=== PATIENT | male | born 2000 | race Caucasian/White ===

== ENCOUNTER 2023-08-12 15:01 | Emergency (ER) | payer MEDICAID, OTHER ==
[2023-08-12 16:06] LABS: BASOPHILS % (AUTO) 0.8 %; EOSINOPHILS % (AUTO) 0.3 %; HCT - HEMATOCRIT 46.9 % (42.0-52.0); HGB - HEMOGLOBIN 15.6 g/dL (14.0-18.0); LYMPHOCYTES # (AUTO) 1.4 10^3/uL (1.5-3.5); LYMPHOCYTES % (AUTO) 36.3 %; MEAN CORPUSCULAR HEMOGLOBIN 29.1 pg (27.0-31.0); MEAN CORPUSCULAR HGB CONC 33.3 g/dL (32.0-36.0); MEAN CORPUSCULAR VOLUME 87.5 fL (80.0-94.0); MEAN PLATELET VOLUME 9.2 fL (7.4-11.4); MONOCYTES # (AUTO) 0.2 10^3/uL (0.0-1.0); MONOCYTES % (AUTO) 4.7 %; NEUTROPHILS # (AUTO) 2.2 10^3/uL (1.5-6.6); NEUTROPHILS % (AUTO) 57.6 %; PLT - PLATELET COUNT 172 10^3/uL (130-450); RED BLOOD COUNT 5.36 10^6/uL (4.70-6.10); RED CELL DISTRIBUTION WIDTH 13.2 % (12.0-15.0); WHITE BLOOD COUNT 3.9 x10^3/uL (4.8-10.8)
[2023-08-12 16:25] LABS: ACETAMINOPHEN 0.2 ug/mL; CK- CREATINE KINASE 92 IU/L (30-223); LIPASE 25 U/L (11-82)
[2023-08-12 16:31] LABS: ALBUMIN 4.6 g/dL (3.2-5.5); ALBUMIN/GLOBULIN RATIO 1.4 (1.0-2.2); ALKALINE PHOSPHATASE 120 IU/L (42-121); ALT ALANINE AMINOTRANSFERASE 166 IU/L (10-60); AST ASPARTATE AMINOTRANSFERASE 322 IU/L (10-42); BILIRUBIN,TOTAL 0.6 mg/dL (0.2-1.0); BUN - BLOOD UREA NITROGEN 12 mg/dL (6-20); CALCIUM 8.7 mg/dL (8.5-10.3); CARBON DIOXIDE - CO2 24 mmol/L (21-32); CHLORIDE 98 mmol/L (101-111); CREATININE 0.7 mg/dL (0.6-1.3); GFR - MDRD 142 (>89); GLUCOSE 91 mg/dL (74-104); POTASSIUM 3.9 mmol/L (3.5-4.5); SALICYLATE < 1.5 mg/dL; SODIUM 140 mmol/L (135-145); TOTAL PROTEIN 7.8 g/dL (6.4-8.9)
[2023-08-12 16:34] LABS: THYROID STIMULATING HORMONE 0.32 uIU/mL (0.34-5.60)
[2023-08-12 16:37] LABS: BILIRUBIN,URINE NEGATIVE (NEGATIVE); GLUCOSE, URINE (UA) NEGATIVE (NEGATIVE); KETONES,URINE (UA) >=80 mg/dL (NEGATIVE); LEUKOCYTE ESTERASE, URINE NEGATIVE (NEGATIVE); NITRITE,URINE NEGATIVE (NEGATIVE); OCCULT BLOOD,URINE NEGATIVE (NEGATIVE); PROTEIN,URINE TRACE mg/dL (NEGATIVE); UROBILINOGEN,URINE 1 (NORMAL) E.U./dL (NORMAL)
[2023-08-12 16:40] LABS: CLARITY,URINE CLEAR (CLEAR)
[2023-08-12 16:48] LABS: AMPHETAMINE SCREEN,URINE NEGATIVE (NEGATIVE); BARBITURATE SCREEN,UR NEGATIVE (NEGATIVE); BENZODIAZEPINES SCREEN, URINE NEGATIVE (NEGATIVE); BUPRENORPHINE SCREEN, URINE POSITIVE (NEGATIVE); COCAINE SCREEN URINE NEGATIVE (NEGATIVE); METHADONE SCREEN, URINE NEGATIVE (NEGATIVE); METHAMPHETAMINES SCREEN, URINE NEGATIVE (NEGATIVE); OPIATE SCREEN, URINE NEGATIVE (NEGATIVE); OXYCODONE SCREEN, URINE NEGATIVE (NEGATIVE); THC CANNABINOID SCREEN, URINE NEGATIVE (NEGATIVE); TRICYCLIC ANTIDEPRESSANT,URINE NEGATIVE (NEGATIVE)
--- NOTE | 2023-08-12 18:43 | ED Physician Documentation ---
PD HPI MHE - Stated complaint Stated Complaint: ETOH - Chief complaint Chief Complaint: MHE - History obtained from History obtained from: Patient, EMS - History of Present Illness Primary symptom: No: Suicidal ideation, Suicide attempt, Self harm - cut Pain level max: 0 Pain level now: 0 - Additional information Additional information: Patient is a 23-year-old male brought in by police for a DCR pickup order for violating an LRO. No other information is available. Patient states that he has been drinking alcohol today. He denies being suicidal or homicidal. He states he has not been taking his medications. I spoke with YESSY Gonzalez, she states that the patient had been released from a psychiatric facility as long as he abstain from alcohol and was taking his medications. He has been drinking alcohol and not taking his medications to the LRO was revoked. She is requesting labs for placement. Patient states that he was last admitted to [facility] for psychiatric care in June 2023. He states the day he was released he went home and started drinking about 1/5 of vodka daily. He states that it is the usual amount that he drinks. He denies any suicidal, homicidal ideation. No hallucinations. Nothing makes it better or worse. Otherwise asymptomatic here. Review of Systems Constitutional: denies: Fever, Chills Nose: denies: Rhinorrhea / runny nose, Congestion GI: denies: Vomiting, Diarrhea Skin: denies: Rash Musculoskeletal: denies: Neck pain, Back pain Neurologic: denies: Focal weakness, Numbness, Headache PD PAST MEDICAL HISTORY - Past Medical History Past Medical History: Yes Psych: Anxiety, Bipolar disorder - Past Surgical History Past Surgical History: No - Present Medications Home Medications: Ambulatory Orders Medication Instructions Recorded Confirmed Divalproex Sodium [Depakote ER] 500 mg PO BID 08/12/23 08/12/23 Propranolol ER [Inderal LA] 60 mg PO DAILY 08/12/23 08/12/23 hydrOXYzine pamoate [Hydroxyzine 50 mg PO Q6HR PRN 08/12/23 08/12/23 Pamoate] risperiDONE [Risperdal] 2 mg PO HS 08/12/23 08/12/23 traZODone [Desyrel] 50 mg PO HS PRN 08/12/23 08/12/23 - Allergies Allergies/Adverse Reactions: Allergies Allergy/AdvReac Type Severity Reaction Status Date / Time No Known Drug Allergies Allergy Verified 08/12/23 15:35 - Social History Does the pt smoke?: Yes Smoking Status: Current every day smoker PD ED PE NORMAL - Vitals Vital signs reviewed: Yes - General General: Alert and oriented X 3, No acute distress, Well developed/nourished - HEENT HEENT: Atraumatic, PERRL, EOMI, Moist mucous membranes - Neck Neck: Supple, no meningeal sign - Cardiac Cardiac: RRR, Strong equal pulses - Respiratory Respiratory: No respiratory distress, Clear bilaterally - Abdomen Abdomen: Soft, Non tender, Non distended - Back Back: No spinal TTP - Derm Derm: Warm and dry - Extremities Extremities: No edema, No calf tenderness / cord - Neuro Neuro: Alert and oriented X 3, cutter out 2-12 intact, No motor deficit, No sensory deficit, Normal speech - Psych Psych: Normal mood, Normal affect Results - Vitals Vitals: Vital Signs - 24 hr 08/12/23 08/12/23 08/12/23 15:04 15:28 15:52 Temperature 36.7 C Heart Rate 101 H 110 H Respiratory 18 18 20 Rate Blood Pressure 141/97 H 135/96 H O2 Saturation 95 97 08/12/23 08/12/23 08/12/23 16:31 17:37 19:17 Temperature Heart Rate 111 H Respiratory 18 16 17 Rate Blood Pressure 139/86 H O2 Saturation 96 08/12/23 08/12/23 08/12/23 20:12 20:40 22:28 Temperature Heart Rate 122 H Respiratory 18 19 17 Rate Blood Pressure 133/95 H O2 Saturation 96 08/12/23 23:44 Temperature Heart Rate Respiratory 20 Rate Blood Pressure O2 Saturation 97 Oxygen O2 Source Room air - EKG (time done) 1747 EKG releavant findings:: EKG personally interpreted by author of this note. Relevant findings are: Rate: Rate (enter#) (108) Rhythm: Sinus tachycardia [place]: Normal Intervals: Normal [place] QRS: Normal Ischemia: Normal ST segments - Labs Labs: Laboratory Tests 08/12/23 08/12/23 08/12/23 16:00 16:00 16:04 WBC 3.9 L RBC 5.36 Hgb 15.6 Hct 46.9 MCV 87.5 MCH 29.1 MCHC 33.3 RDW 13.2 Plt Count 172 MPV 9.2 Neut # (Auto) 2.2 Lymph # (Auto) 1.4 L [place] # (Auto) 0.2 Eos # (Auto) 0.0 Baso # (Auto) 0.0 Absolute Nucleated RBC 0.00 Nucleated RBC % 0.0 Sodium 140 Potassium 3.9 Chloride 98 L Carbon Dioxide 24 Anion Gap 18.0 H BUN 12 Creatinine 0.7 Estimated GFR (MDRD) 142 Glucose 91 Calcium 8.7 Magnesium 2.0 Total Bilirubin 0.6 AST 322 H ALT 166 H Alkaline Phosphatase 120 Total Creatine Kinase 92 Total Protein 7.8 Albumin 4.6 Globulin 3.2 Albumin/Globulin Ratio 1.4 Lipase 25 TSH 0.32 L Urine Color Urine Clarity Urine pH Ur Specific [place] Urine Protein Urine Glucose (UA) Urine Ketones Urine Occult Blood Urine Nitrite Urine Bilirubin Urine Urobilinogen Ur Leukocyte Esterase Ur Microscopic Review Urine Culture Comments Last Dose Date Not Reportable Last Dose Time Not Reportable Salicylates < 1.5 Urine Opiates Screen Ur Buprenorphine Scrn Ur Oxycodone Screen Urine Methadone Screen Acetaminophen 0.2 Ur Barbiturates Screen Valproic Acid 4.0 Ur Tricyclics Screen Ur Phencyclidine Scrn Ur Amphetamine Screen U Methamphetamines Scrn U Benzodiazepines Scrn Urine Cocaine Screen U Cannabinoids Screen Ur Drug Screen Comment Ethyl Alcohol 441.0 SARS-CoV-2 (PCR) 08/12/23 08/12/23 16:20 16:23 WBC RBC Hgb Hct MCV MCH MCHC RDW Plt Count MPV Neut # (Auto) Lymph # (Auto) [place] # (Auto) Eos # (Auto) Baso # (Auto) Absolute Nucleated RBC Nucleated RBC % Sodium Potassium Chloride Carbon Dioxide Anion Gap BUN Creatinine Estimated GFR (MDRD) Glucose Calcium Magnesium Total Bilirubin AST ALT Alkaline Phosphatase Total Creatine Kinase Total Protein Albumin Globulin Albumin/Globulin Ratio Lipase TSH Urine Color DARK YELLOW Urine Clarity CLEAR Urine pH 6.0 Ur Specific [place] 1.015 Urine Protein TRACE Urine Glucose (UA) NEGATIVE Urine Ketones >=80 H Urine Occult Blood NEGATIVE Urine Nitrite NEGATIVE Urine Bilirubin NEGATIVE Urine Urobilinogen 1 (NORMAL) Ur Leukocyte Esterase NEGATIVE Ur Microscopic Review NOT INDICATED Urine Culture Comments NOT INDICATED Last Dose Date Last Dose Time Salicylates Urine Opiates Screen NEGATIVE Ur Buprenorphine Scrn POSITIVE H Ur Oxycodone Screen NEGATIVE Urine Methadone Screen NEGATIVE Acetaminophen Ur Barbiturates Screen NEGATIVE Valproic Acid Ur Tricyclics Screen NEGATIVE Ur Phencyclidine Scrn NEGATIVE Ur Amphetamine Screen NEGATIVE U Methamphetamines Scrn NEGATIVE U Benzodiazepines Scrn NEGATIVE Urine Cocaine Screen NEGATIVE U Cannabinoids Screen NEGATIVE Ur Drug Screen Comment CUTOFF CONC BELOW: Ethyl Alcohol SARS-CoV-2 (PCR) NOT DETECTED PD Medical Decision Making - ED course Complexity details: reviewed results, re-evaluated patient, considered differential, d/w patient ED course: The patient is intoxicated in the emergency department but is not suicidal or homicidal. He does have elevation of his liver function test, these are mild elevations and should be trended. Unclear what his last LFTs were as we do not have any lab values from prior on him. He is not in acute liver failure. Likely they are elevated from his alcohol use. The patient does not have any withdrawal symptoms here. Patient did become mildly tachycardic and was given Ativan. DCR came and evaluated the patient. They will look for a bed for the patient. Patient signed out to the oncoming emergency department physician. This document was made in part using voice recognition software. While efforts are made to proofread this document, sound alike and grammatical errors may occur. Departure - Departure Clinical Impression: Alcohol abuse, Noncompliance with medication regimen, Elevated LFTs Bipolar disorder Qualifiers: Active/Remission status: remission status unspecified Qualified Code(s): F31.9 - Bipolar disorder, unspecified Condition: Stable Forms: PCP List
[2023-08-12] MEDS ORDERED: BUPRENORPHINE/NALOXONE 8-2 MG TAB SL STA (21:42)
[2023-08-12] MEDS ORDERED: LORazepam 1 MG TABLET PO STA ×2 (22:30→23:13)
[2023-08-12] MEDS ORDERED: NICOTINE 14 MG PATCH TOP STA (23:39)
[2023-08-12] MEDS ORDERED: PROPRANOLOL 10 MG TABLET PO STA (23:51)
[2023-08-13] MEDS ORDERED: BUPRENORPHINE/NALOXONE 8-2 MG TAB SL STA ×2 (00:45→07:35)
[2023-08-13] MEDS ORDERED: LORazepam 1 MG TABLET PO STA ×2 (01:26→06:13)
--- NOTE | 2023-08-13 01:59 | ED Physician Documentation ---
ED Addendum - Addendum Addendum: Patient received in signout at shift change awaiting placement by the DCR for violating his LR0.Was found to have quite an elevated alcohol level upon arrival. During my shift he is requesting meditations to help with his restlessness and agitation. Could be from alcohol withdrawal. Have ordered Ativan for him. Additionally he is asking for additional dose of Suboxone. He was already given 8 mg but states that he usually takes 16 mg. On review of recently filled medications there was a prescription written at the end of June for 7 days of Suboxone 8 mg and 14 tabs were dispensed so I do think he is taking 16 mg daily. I have ordered an additional 8 mg.Patient also r equesting Nicotine patch. 08/13/23 01:57 Spoke with intake nurse at a facility in [facility]. She had some further questions regarding his medications and whether he is also abusing opiates. She will reach back out to DCR. 08/13/23 03:59 Patient has been accepted to [facility]. Patient to be signed out to oncoming provider at shift change.
[2023-08-13] MEDS ORDERED: traZODone 50 MG TABLET PO STA (03:07)
[2023-08-13 06:42] VITALS: BP 150/90; O2SAT 97
[2023-08-13] MEDS ORDERED: DIVALPROEX ER 250 MG TABLET PO STA (07:35)
[2023-08-13] MEDS ORDERED: PROPRANOLOL 10 MG TABLET PO STA (07:36)
[2023-08-13] MEDS: hydrOXYzine PAMOATE 25 MG CAPSULE PO STA ×3 (07:45→07:49)
== END 2023-08-13 10:19 ==
LOC: ED 15:01
DX: F10.10 Alcohol abuse, uncomplicated (principal); Y90.8 Blood alcohol level of 240 mg/100 ml or more; R79.89 Other specified abnormal findings of blood chemistry; R00.0 Tachycardia, unspecified; R45.1 Restlessness and agitation; F31.9 Bipolar disorder, unspecified; F17.200 Nicotine dependence, unspecified, uncomplicated; Z91.148 Patient's other noncompliance with medication regimen for other reason; Z79.899 Other long term (current) drug therapy
CPT/HCPCS: 36415; 80053; 80164; 80306; 80307; 80320; 80329; 81003; 82550; 83690; 83735; 84443; 85025; 87635; 93005; 99284; 99285; A9270; J8499; 81001; 87086

== ENCOUNTER 2023-09-24 13:58 | Outpatient (CLI) | payer MEDICAID | END 2023-09-24 23:59 | disposition home or self-care (01) | LOC: EMS 13:58 | DX: R41.82 Altered mental status, unspecified (principal) | CPT/HCPCS: A0425; A0429; A0999 ==

== ENCOUNTER 2023-09-24 15:24 | Emergency (ER) | payer MEDICAID ==
[2023-09-24] MEDS: SODIUM CHLORIDE 0.9% 1,000 ML IV ONE (16:54)
[2023-09-24 17:24] LABS: LYMPHOCYTES % (AUTO) 15.5 %
[2023-09-24 17:31] LABS: MAGNESIUM 1.9 mg/dL (1.7-2.3)
[2023-09-24 17:34] LABS: BASOPHILS # (AUTO) 0.1 10^3/uL (0.0-0.1); BASOPHILS % (AUTO) 0.3 %; EOSINOPHILS % (AUTO) 0.2 %; HCT - HEMATOCRIT 48.7 % (42.0-52.0); HGB - HEMOGLOBIN 16.4 g/dL (14.0-18.0); LYMPHOCYTES # (AUTO) 3.2 10^3/uL (1.5-3.5); MEAN CORPUSCULAR HEMOGLOBIN 29.6 pg (27.0-31.0); MEAN CORPUSCULAR HGB CONC 33.7 g/dL (32.0-36.0); MEAN CORPUSCULAR VOLUME 87.9 fL (80.0-94.0); MEAN PLATELET VOLUME 9.4 fL (7.4-11.4); MONOCYTES % (AUTO) 4.9 %; NEUTROPHILS # (AUTO) 16.3 10^3/uL (1.5-6.6); NEUTROPHILS % (AUTO) 78.6 %; PLT - PLATELET COUNT 351 10^3/uL (130-450); RED BLOOD COUNT 5.54 10^6/uL (4.70-6.10); RED CELL DISTRIBUTION WIDTH 13.3 % (12.0-15.0); WHITE BLOOD COUNT 20.7 x10^3/uL (4.8-10.8)
[2023-09-24 17:41] LABS: SLIDE REVIEW? Indicated
[2023-09-24 17:46] LABS: ALBUMIN 4.9 g/dL (3.2-5.5); ALBUMIN/GLOBULIN RATIO 1.6 (1.0-2.2); BILIRUBIN,TOTAL 0.2 mg/dL (0.2-1.0); CALCIUM 8.7 mg/dL (8.5-10.3); CREATININE 1.1 mg/dL (0.6-1.3)
[2023-09-24 17:53] LABS: POTASSIUM 4.3 mmol/L (3.5-4.5)
[2023-09-24 18:04] LABS: ACETAMINOPHEN 0.6 ug/mL; ETOH - ETHANOL 267.9 mg/dL
[2023-09-24 18:09] LABS: SALICYLATE < 1.5 mg/dL
[2023-09-24 18:16] LABS: THYROID STIMULATING HORMONE 0.09 uIU/mL (0.34-5.60)
--- NOTE | 2023-09-24 18:25 | ED Physician Documentation ---
History of Present Illness - Stated complaint Stated Complaint: MHE/JENNIFER - Chief complaint Chief Complaint: MHE - Additonal information Additional information: 23-year-old male present to the emergency department via ambulance for concerns of alcohol consumption and kratom use. Patient was brought in via JENNIFER For concerns that patient is unable to take care of himself by police. Patient says that he is having some active suicidal ideation saying that he does not want to be alive anymore he does have bipolar disorder he says he takes kratom daily 50 to 60 mg of kratom. He has had a lot of alcohol today he is unable to quantify how much and he does have a lot of dried emesis on his [place] and nose. He is quite tachycardic he denies any chest pain or shortness of breath.Patient not entirely forthcoming with how much alcohol he drinks daily he says that he does not drink consistently or regularly he also says he does not member when he last used kratom originally it was 8 to 12 hours ago and then he changed his mind to maybe it was 24 to 48 hours ago. PD PAST MEDICAL HISTORY - Past Medical History Past Medical History: Yes Psych: Anxiety, Bipolar disorder - Past Surgical History Past Surgical History: No - Present Medications Home Medications: Ambulatory Orders Medication Instructions Recorded Confirmed Divalproex Sodium [Depakote ER] 500 mg PO BID 08/12/23 09/24/23 Propranolol ER [Inderal LA] 60 mg PO DAILY 08/12/23 09/24/23 hydrOXYzine pamoate [Hydroxyzine 50 mg PO Q6HR PRN 08/12/23 09/24/23 Pamoate] risperiDONE [Risperdal] 2 mg PO HS 08/12/23 09/24/23 traZODone [Desyrel] 50 mg PO HS PRN 08/12/23 09/24/23 Buprenorphine HCl/Naloxone HCl 24 mg PO DAILY 08/13/23 09/24/23 [Suboxone 8 mg-2 mg Sl Film] - Allergies Allergies/Adverse Reactions: Allergies Allergy/AdvReac Type Severity Reaction Status Date / Time No Known Drug Allergies Allergy Verified 09/24/23 15:38 - Social History Does the pt smoke?: Yes Smoking Status: Current every day smoker PD ED PE NORMAL - Vitals Vital signs reviewed: Yes - General General: Other (Patient is quite disheveled with brown emesis started onto his face and overall ill-appearing. He is alert and x 3) - HEENT HEENT: PERRL, EOMI, Pharynx benign - Neck Neck: Other (JVD) - Cardiac Cardiac: Strong equal pulses (bounding HR, sinus tach), Other - Respiratory Respiratory: No respiratory distress, Clear bilaterally - Abdomen Abdomen: Normal bowel sounds, Soft, Non tender, Non distended, No organomegaly - Derm Derm: Normal color, Warm and dry, No rash - Extremities Extremities: No edema - Neuro Neuro: Alert and oriented X 3, hospitalist 2-12 intact, Normal speech, Other (tremulous) Eye Opening: Spontaneous Motor: Obeys Commands Verbal: Oriented GCS Score: 15 - Psych Psych: Other (gaurded, blunt affect, does endorse in suicidal ideation with plan to drink himself to per pt. denies homicidial ideation, no visual or audible hallucinations) Results - Vitals Vitals: Vital Signs - 24 hr 09/24/23 09/24/23 15:33 22:00 Temperature 36.9 C 37.7 C Heart Rate 135 H 150 H Respiratory 18 23 Rate Blood Pressure 131/79 H 115/67 O2 Saturation 97 95 Oxygen O2 Source Room air - EKG (time done) 1741 EKG releavant findings:: EKG personally interpreted by author of this note. Relevant findings are: Rate: Rate (enter#) (136) Rhythm: Sinus tachycardia [place]: Normal Intervals: Normal [place] QRS: LVH Ischemia: Normal ST segments Computer interpretation: Agree with computer - Labs Labs: Laboratory Tests 09/24/23 09/24/23 09/24/23 16:53 16:53 16:53 WBC 20.7 H RBC 5.54 Hgb 16.4 Hct 48.7 MCV 87.9 MCH 29.6 MCHC 33.7 RDW 13.3 Plt Count 351 MPV 9.4 Neut # (Auto) 16.3 H Lymph # (Auto) 3.2 Placer # (Auto) 1.0 Eos # (Auto) 0.0 Baso # (Auto) 0.1 Absolute Nucleated RBC 0.00 Band Neuts % (Manual) Not Reportable Abnorm Lymph % (Manual) Not Reportable Nucleated RBC % 0.0 Neutrophils # (Manual) Not Reportable Lymphocytes # (Manual) Not Reportable Monocytes # (Manual) Not Reportable Eosinophils # (Manual) Not Reportable Basophils # (Manual) Not Reportable Differential Comment MANUAL=AUTO DIFF Manual Slide Review Indicated Platelet Estimate NORMAL (130-450,000) Platelet Morphology NORMAL APPEARANCE RBC Morph Micro Appear NORMAL APPEARANCE Sodium 141 Potassium 4.3 Chloride 98 L Carbon Dioxide 15 L Anion Gap 28.0 H BUN 19 Creatinine 1.1 Estimated GFR (MDRD) 85 L Glucose 89 Calcium 8.7 Magnesium 1.9 Total Bilirubin 0.2 AST 42 ALT 28 Alkaline Phosphatase 90 Total Protein 8.0 Albumin 4.9 Globulin 3.1 Albumin/Globulin Ratio 1.6 Lipase 16 TSH 0.09 L Thyroxine (T4) Free T3 pg/mL Random Cortisol Urine Color Urine Clarity Urine pH Ur Specific [place] Urine Protein Urine Glucose (UA) Urine Ketones Urine Occult Blood Urine Nitrite Urine Bilirubin Urine Urobilinogen Ur Leukocyte Esterase Ur Microscopic Review Urine Culture Comments Salicylates < 1.5 Urine Opiates Screen Ur Buprenorphine Scrn Ur Oxycodone Screen Urine Methadone Screen Acetaminophen 0.6 Ur Barbiturates Screen Ur Tricyclics Screen Ur Phencyclidine Scrn Ur Amphetamine Screen U Methamphetamines Scrn U Benzodiazepines Scrn Urine Cocaine Screen U Cannabinoids Screen Ur Drug Screen Comment Ethyl Alcohol 267.9 09/24/23 09/24/23 09/24/23 16:53 16:53 18:44 WBC RBC Hgb Hct MCV MCH MCHC RDW Plt Count MPV Neut # (Auto) Lymph # (Auto) [place] # (Auto) Eos # (Auto) Baso # (Auto) Absolute Nucleated RBC Band Neuts % (Manual) Abnorm Lymph % (Manual) Nucleated RBC % Neutrophils # (Manual) Lymphocytes # (Manual) Monocytes # (Manual) Eosinophils # (Manual) Basophils # (Manual) Differential Comment Manual Slide Review Platelet Estimate Platelet Morphology RBC Morph Micro Appear Sodium Potassium Chloride Carbon Dioxide Anion Gap BUN Creatinine Estimated GFR (MDRD) Glucose Calcium Magnesium Total Bilirubin AST ALT Alkaline Phosphatase Total Protein Albumin Globulin Albumin/Globulin Ratio Lipase TSH Thyroxine (T4) 4.0 L Free T3 pg/mL 3.52 Random Cortisol 35.5 Urine Color YELLOW Urine Clarity CLEAR Urine pH 5.5 Ur Specific [place] >=1.030 H Urine Protein TRACE Urine Glucose (UA) NEGATIVE Urine Ketones >=80 H Urine Occult Blood NEGATIVE Urine Nitrite NEGATIVE Urine Bilirubin NEGATIVE Urine Urobilinogen 0.2 (NORMAL) Ur Leukocyte Esterase NEGATIVE Ur Microscopic Review NOT INDICATED Urine Culture Comments NOT INDICATED Salicylates Urine Opiates Screen NEGATIVE Ur Buprenorphine Scrn NEGATIVE Ur Oxycodone Screen NEGATIVE Urine Methadone Screen NEGATIVE Acetaminophen Ur Barbiturates Screen NEGATIVE Ur Tricyclics Screen NEGATIVE Ur Phencyclidine Scrn NEGATIVE Ur Amphetamine Screen NEGATIVE U Methamphetamines Scrn NEGATIVE U Benzodiazepines Scrn NEGATIVE Urine Cocaine Screen NEGATIVE U Cannabinoids Screen NEGATIVE Ur Drug Screen Comment CUTOFF CONC BELOW: Ethyl Alcohol PD Medical Decision Making - ED course ED course: 23-year-old male presents emerged department via police for original concerns of JENNIFER patient really did not want to come to the emergency department but please force him to come here because of concerns for patient not able to care for himself. I spoke in great length with poison controlThe pharmacist and claims investigator. There is concerns because patient remains tachycardic into the 150s 160s at rest and sleeping despite multiple doses of IV Ativan not controlling his tachycardia. TSH was found to be pretty suppressed at 0.09 T4 also found to be suppressed at 4.0, T3 within normal limits at 3.52. TSH from July of this year was found to also be low at 0.32. [employer] recommended doing a random cortisol level and does not know if this is anything to do with his withdrawal of kratom. [employer] Novel[employer] is also suggesting that his tachycardia is most likely not due to alcohol withdrawal given that he is not hypertensive with his tachycardia. Patient consistently asking for a dose of Suboxone claims investigator agrees with a small dose of initiating Suboxone to see if this helps with his persistent tachycardia. I attempted to admit the patient to the hospital here but data conversion analyst telehospitalist does not believe the patient meets hospital admission criteria given his symptoms to the hospitalist believes that patient would benefit from larger hospital with more specialty services. Because of patient's persistent tachycardia I went ahead and ordered a chest x- ray, blood cultures and started him on a one-time dose of IV Rocephin with the slight possibility of this being related to sepsis that we are possibly missing. Urine drug screen overall unremarkable is negative for everything that we have tested him for. Tylenol and salicylate levels also unremarkable. Patient remains calm and cooperative throughout entire visit he said that he is agreeable to transfer to another hospital for further hospitalization. I do not have his reach out to multiple hospitals for hospitalization we have so far been unsuccessful with getting patient transferred elsewhere. Report given to Dr. Caruso due to change of shift. Departure - Departure Disposition: 02 Transfer Acute Care Hosp Clinical Impression: Withdrawal from opioids, Withdrawal from recreational drug, Sinus tachycardia, Hyperthyroidism Alcohol intoxication Qualifiers: Complication of substance-induced condition: uncomplicated Qualified Code(s): F10.920 - Alcohol use, unspecified with intoxication, uncomplicated Forms: PCP List
[2023-09-24 18:32] LABS: DIFFERENTIAL COMMENT MANUAL=AUTO DIFF; PLATELET ESTIMATE, MANUAL NORMAL (130-450,000) (NORMAL); PLATELET MORPHOLOGY NORMAL APPEARANCE (NORMAL); RBC MORPHOLOGY (MULTIPLE) NORMAL APPEARANCE (NORMAL)
[2023-09-24] MEDS: LORazepam 2 MG/ML VIAL IVP STA ×4 (18:33→21:53)
[2023-09-24 18:53] LABS: BILIRUBIN,URINE NEGATIVE (NEGATIVE); GLUCOSE, URINE (UA) NEGATIVE (NEGATIVE); KETONES,URINE (UA) >=80 mg/dL (NEGATIVE); LEUKOCYTE ESTERASE, URINE NEGATIVE (NEGATIVE); NITRITE,URINE NEGATIVE (NEGATIVE); OCCULT BLOOD,URINE NEGATIVE (NEGATIVE); PH,URINE 5.5 PH (5.0-7.5); PROTEIN,URINE TRACE mg/dL (NEGATIVE); UROBILINOGEN,URINE 0.2 (NORMAL) E.U./dL (NORMAL)
[2023-09-24 18:54] LABS: CLARITY,URINE CLEAR (CLEAR)
[2023-09-24 19:04] LABS: AMPHETAMINE SCREEN,URINE NEGATIVE (NEGATIVE); BARBITURATE SCREEN,UR NEGATIVE (NEGATIVE); BENZODIAZEPINES SCREEN, URINE NEGATIVE (NEGATIVE); BUPRENORPHINE SCREEN, URINE NEGATIVE (NEGATIVE); COCAINE SCREEN URINE NEGATIVE (NEGATIVE); METHADONE SCREEN, URINE NEGATIVE (NEGATIVE); METHAMPHETAMINES SCREEN, URINE NEGATIVE (NEGATIVE); OPIATE SCREEN, URINE NEGATIVE (NEGATIVE); OXYCODONE SCREEN, URINE NEGATIVE (NEGATIVE); THC CANNABINOID SCREEN, URINE NEGATIVE (NEGATIVE); TRICYCLIC ANTIDEPRESSANT,URINE NEGATIVE (NEGATIVE)
[2023-09-24] MEDS: methocarbamoL 500 MG TABLET PO STA (19:24)
[2023-09-24] MEDS: NICOTINE 14 MG PATCH TOP STA ×2 (21:50→21:53)
[2023-09-24] MEDS: NICOTINE 21 MG PATCH TOP STA ×2 (21:56)
[2023-09-25] MEDS ORDERED: cefTRIAXone 1 GM VIAL ONE (00:06)
[2023-09-25] MEDS: fentaNYL 100 MCG/2 ML VIAL IVP STA (00:08)
[2023-09-25] MEDS: BUPRENORPHINE/NALOXONE 8-2 MG TAB SL STA ×5 (00:09→10:03)
--- NOTE | 2023-09-25 00:10 | XRAY Report ---
PROCEDURE: Chest 2V INDICATIONS: tachy TECHNIQUE: 2 views of the chest were acquired. COMPARISON: None. FINDINGS: Surgical changes and devices: None. Lungs and pleura: No pleural effusions or pneumothorax. Lungs are clear. Mediastinum: Mediastinal contours appear normal. Heart size is normal. Bones and chest wall: No suspicious bony lesions. Overlying soft tissues appear unremarkable. IMPRESSION: No acute cardiopulmonary process. Reviewed by: Julius Loera MD on 09/25/2023 12:08 AM PDT Approved by: Julius Loera MD on 09/25/2023 12:08 AM PDT Station ID: [id number]
[2023-09-25] MEDS: cefTRIAXone 1 GM in SODIUM CHLORIDE 0.9% MINIBAG 100 ML IV STA (00:11)
[2023-09-25] MEDS: SODIUM CHLORIDE 0.9% 1,000 ML IV STA ×3 (01:45→10:03)
[2023-09-25 02:42] LABS: B. PARAPERTUSSIS- RESP PCR PAN NOT DETECTED; B. PERTUSSIS- RESP PCR PANEL NOT DETECTED; C. PNEUMONIAE- RESP PCR PANEL NOT DETECTED; CORONAVIRUS 229E-RESP PCR NOT DETECTED; CORONAVIRUS HKU1-RESP PCR NOT DETECTED; CORONAVIRUS NL63-RESP PCR NOT DETECTED; CORONAVIRUS OC43-RESP PCR NOT DETECTED; HUMAN METAPNEUMOVIRUS NOT DETECTED; INFLUENZA A- RESP PCR PANEL NOT DETECTED; INFLUENZA B - RESP PCR PANEL NOT DETECTED; M. PNEUMONIAE- RESP PCR PANEL NOT DETECTED; PARAINFLUENZA VIRUS 1 NOT DETECTED; PARAINFLUENZA VIRUS 2 NOT DETECTED; PARAINFLUENZA VIRUS 3 NOT DETECTED; PARAINFLUENZA VIRUS 4 NOT DETECTED; RHINOVIRUS/ENTEROVIRUS NOT DETECTED; RSV- RESP PCR PANEL NOT DETECTED; SARS-CoV-2 -RESP PCR PANEL NOT DETECTED
--- NOTE | 2023-09-25 03:24 | ED Physician Documentation ---
ED Addendum - Addendum Addendum: 09/25/23 03:20 Patient endorsed to me by KAMILLE Francois pending transfer. patient is on [facility] waitlist for transfer for undifferentiated tachycardia. Patient was rejected by telehealth hospitalist for admission prior to my shift. He spiked a fever of 38.1 overnight and was given oral tylenol and IVF. Unable to ascertain source for fever as of yet. cxr and rvp negative, patient is largely asymptomatic except for body aches he attributes to kratom withdrawal. JOSEFINA Francois ordered rocephin last night and I added on vancomycin to cover for possible endocarditis, though patient denies IVDU and does not have CP or other symptoms. Persistent tachycardia in 140s even while sleeping. Note that he has had asymptomatic tachycardia on prior visits and has taken beta micheal in the past. plan to administer suboxone and ativan for withdrawal symptoms. Will provide propranolol 60mg home med as well. CK ordered in case fever is actually hyperthermia mediated by rhabdo. 09/25/23 03:25 09/25/23 03:26 09/25/23 07:03 Propranolol, suboxone, and ativan seems to have been highly effective. patient now with normal HR. ck normal. still unsure of fever source. Will endorse to incoming daytime ED MD at 7am shift change.
[2023-09-25] MEDS ORDERED: VANCOMYCIN 1 GM VIAL ONE (04:25)
[2023-09-25] MEDS: LORazepam 2 MG/ML VIAL IVP STA ×4 (04:28→14:38)
[2023-09-25] MEDS: PROPRANOLOL 10 MG TABLET PO STA (04:29)
[2023-09-25] MEDS: VANCOMYCIN INJ 1.25 GM in SODIUM CHLORIDE 0.9% 500 ML IV STA (04:30)
[2023-09-25] MEDS: ACETAMINOPHEN 325 MG TABLET PO STA ×2 (04:49→04:50)
[2023-09-25] MEDS ORDERED: PROPRANOLOL 10 MG TABLET PO SCH (07:00)
[2023-09-25 07:47] LABS: BASOPHILS # (AUTO) 0.1 10^3/uL (0.0-0.1); BASOPHILS % (AUTO) 0.5 %; EOSINOPHILS # (AUTO) 0.1 10^3/uL (0.0-0.7); EOSINOPHILS % (AUTO) 0.7 %; HCT - HEMATOCRIT 32.9 % (42.0-52.0); HGB - HEMOGLOBIN 11.1 g/dL (14.0-18.0); LYMPHOCYTES # (AUTO) 1.8 10^3/uL (1.5-3.5); LYMPHOCYTES % (AUTO) 18.8 %; MEAN CORPUSCULAR HEMOGLOBIN 29.5 pg (27.0-31.0); MEAN CORPUSCULAR HGB CONC 33.7 g/dL (32.0-36.0); MEAN CORPUSCULAR VOLUME 87.5 fL (80.0-94.0); MONOCYTES # (AUTO) 1.1 10^3/uL (0.0-1.0); MONOCYTES % (AUTO) 11.1 %; NEUTROPHILS # (AUTO) 6.6 10^3/uL (1.5-6.6); NEUTROPHILS % (AUTO) 68.7 %; PLT - PLATELET COUNT 198 10^3/uL (130-450); RED BLOOD COUNT 3.76 10^6/uL (4.70-6.10); RED CELL DISTRIBUTION WIDTH 13.2 % (12.0-15.0); WHITE BLOOD COUNT 9.7 x10^3/uL (4.8-10.8)
[2023-09-25 08:12] LABS: CK- CREATINE KINASE 44 IU/L (30-223); CRP - C-REACTIVE PROTEIN < 0.5 mg/dL (<0.5); ETOH - ETHANOL < 10.0 mg/dL
[2023-09-25 08:21] LABS: PROCALCITONIN 0.33 ng/mL (<0.5)
--- NOTE | 2023-09-25 09:12 | ED Physician Documentation ---
ED Addendum - Addendum Addendum: 09/25/23 09:08 Patient presented last evening with agitation, shakiness, some nausea and alcohol use. He states he has been using 50 to 60 mg of kratom daily and had not for the last 2 days. He believes he is in withdrawal from that. Had been drinking alcohol recently so less likely that as a cause. Prior history of narcotic use and takes buprenorphine at this time on a daily basis. Also prescribed propranolol regularly and is also on several medications for anxiety and bipolar including Depakote hydroxyzine and another. He did have a mild temperature elevation to just barely febrile at 38.1. His white count had been elevated initially but no bandemia etc. No clinical sign of infection. Workup was done including viral panel test as a nose swab and chest x-ray and urine test. No obvious findings. The temperature was back at normal and his heart rate improved with some fluids and medication for withdrawal. Presume some hyperactivity leading to his temperature elevation. Blood tests repeated this morning showed an alcohol level to be low to 0. His U tox had been negative for cocaine and meth. Likely is having some kratom withdrawal. We can give benzodiazepines for that. For alcohol withdrawal, we can use a combination of the benzodiazepine plus consider dosing of phenobarbital. Repeat blood test this morning showed a normal white count, negative CK, normal procalcitonin. These would indicate no notable bacterial infection. At this point we will have social work evaluate the patient for his suicidal ideation statements last evening and also for assistance with substance use disorder. There had been thoughts on the previous providers of transferring to another facility as our hospitalist here did not feel he met appropriate criteria with the substance use as well. The patient appears better this morning is more relaxed. Numbers are improved. [facility] or such in status release and any signs of sepsis or focal infection at this point.
[2023-09-25 09:26] LABS: VALPROIC ACID (DEPAKOTE) < 4.0 ug/mL
[2023-09-25] MEDS: LORazepam 1 MG TABLET PO STA (13:09)
[2023-09-25] MEDS: hydrOXYzine PAMOATE 25 MG CAPSULE PO STA (13:12)
[2023-09-25] MEDS: DIVALPROEX ER 250 MG TABLET PO SCH (13:12)
--- NOTE | 2023-09-25 13:23 | PHARMACY PROGRESS NOTE ---
- Best Possible Medication History Admit Date and Time: Processed by: Nursing Medications reviewed in ED?: Yes Medication History completed: Yes Patient Interview: Completed Secondary Source(s): Insurance records As the person ultimately responsible for medication therapy, providers are able to order a medication from an existing home medication list in [facility] via the "Reconcile Routine" prior to Confirmation of that medication by manager decision support. Such practice is discouraged except when the physician, in their clinical judgment, deems that a medical need exists for a medication without regard to previous use.
[2023-09-25] MEDS: PHENobarbital 65 MG/ML VIAL IV STA (14:38)
[2023-09-25] MEDS: NICOTINE 21 MG PATCH TOP STA (15:26)
[2023-09-25] MEDS: LORazepam 1 MG TABLET PO PRN (17:50)
--- NOTE | 2023-09-25 18:36 | ED Physician Documentation ---
ED Addendum - Addendum Addendum: 09/25/23 18:34 The patient seemed to do well with the dosing of the Suboxone he had received earlier. He was feeling anxious and shaky at times and was given a repeat dose of Ativan a couple of times. He was then given a oral dose subsequently as well. It was unclear whether he was having some alcohol withdrawal or anxiety or withdrawal from the kratom. Considering the alcohol withdrawal, I did give a dose of phenobarbital 130 mg IV and this did seem to help him quite a bit. Social work talked with the patient and arrived at the decision for voluntary hospitalization at a dual diagnosis facility. He was subsequently accepted at [facility] and will be transferred by [facility]. Disposition: Transfer to acute psychiatric facility Diagnoses: 1. Alcohol use disorder 2. Polysubstance use disorder 3. Suboxone maintenance therapy 4. Suicidal ideation 5. Depression
[2023-09-25 19:27] VITALS: BP 136/91; O2SAT 98
[2023-09-25] MEDS ORDERED: PROPRANOLOL 40 MG TABLET PO SCH (21:00)
== END 2023-09-25 20:47 ==
LOC: EDUNIT# → ED 15:24
DX: F11.23 Opioid dependence with withdrawal (principal); F10.129 Alcohol abuse with intoxication, unspecified; Y90.8 Blood alcohol level of 240 mg/100 ml or more; F19.239 Other psychoactive substance dependence with withdrawal, unspecified; R45.851 Suicidal ideations; E05.90 Thyrotoxicosis, unspecified without thyrotoxic crisis or storm; R00.0 Tachycardia, unspecified; R50.9 Fever, unspecified; R89.2 Abnormal level of other drugs, medicaments and biological substances in specimens from other organs, systems and tissues; F32.A Depression, unspecified; F10.10 Alcohol abuse, uncomplicated; F17.200 Nicotine dependence, unspecified, uncomplicated; Z75.1 Person awaiting admission to adequate facility elsewhere
CPT/HCPCS: 36415; 71046; 80053; 80143; 80164; 80179; 80306; 81003; 82077; 82533; 82550; 83605; 83690; 83735; 84145; 84436; 84443; 84481; 85025; 86140; 87040; 87633; 93005; 96365; 96366; 96367; 96375; 96376; 99285; A9270; J2060; J2560; J3370; J8499; 81001; 87086

== ENCOUNTER 2024-09-11 11:56 | Inpatient (IN) ==
[2024-09-11 12:26] LABS: BILIRUBIN,URINE NEGATIVE (NEGATIVE); GLUCOSE, URINE (UA) NEGATIVE (NEGATIVE); KETONES,URINE (UA) 15 mg/dL (NEGATIVE); LEUKOCYTE ESTERASE, URINE NEGATIVE (NEGATIVE); NITRITE,URINE NEGATIVE (NEGATIVE); OCCULT BLOOD,URINE NEGATIVE (NEGATIVE); PH,URINE 6.5 PH (5.0-7.5); PROTEIN,URINE NEGATIVE (NEGATIVE); UROBILINOGEN,URINE 0.2 (NORMAL) E.U./dL (NORMAL)
[2024-09-11 12:27] LABS: CLARITY,URINE CLEAR (CLEAR)
[2024-09-11 12:32] LABS: BASOPHILS % (AUTO) 0.4 %; HCT - HEMATOCRIT 45.2 % (42.0-52.0); LYMPHOCYTES % (AUTO) 28.3 %; MEAN CORPUSCULAR HEMOGLOBIN 29.4 pg (27.0-31.0); MEAN CORPUSCULAR HGB CONC 33.2 g/dL (32.0-36.0); MEAN CORPUSCULAR VOLUME 88.5 fL (80.0-94.0); MEAN PLATELET VOLUME 10.1 fL (7.4-11.4); MONOCYTES % (AUTO) 0.4 %; NEUTROPHILS % (AUTO) 70.9 %; PLT - PLATELET COUNT 198 10^3/uL (130-450); RED BLOOD COUNT 5.11 10^6/uL (4.70-6.10); RED CELL DISTRIBUTION WIDTH 12.1 % (12.0-15.0); WHITE BLOOD COUNT 2.2 x10^3/uL (4.8-10.8)
[2024-09-11 12:33] LABS: SLIDE REVIEW? Indicated
[2024-09-11 12:34] LABS: ABNORMAL LYMPHS % (MANUAL) 0 %; BAND NEUTROPHILS % (MANUAL) 0 %
--- NOTE | 2024-09-11 12:34 | ED Physician Documentation ---
History of Present Illness Stated complaint Stated Complaint: OD Chief complaint Chief Complaint: General History obtained from History obtained from: Patient and EMS Additonal information Additional information: Patient is a 24-year-old male brought in by ambulance for possible valproic acid overdose. Unknown what time this happened. Last seen last night by his grandparents history of alcoholism and opiate abuse. Family states noncompliant for his valproic acid. Had been on it for seizures in the past. Found 2 empty bottles next to him today. Patient states he does not know if he was just trying to get high or if he was suicidal. Has an IV in place. Review of Systems Status of ROS: unobtainable due to medical condition and unobtainable due to mental status Meds/Allgy Home Medications Ambulatory Orders Medication Instructions Recorded Confirmed hydroxyzine pamoate 50 mg capsule 50 mg PO QPM PRN sleep 08/12/23 09/11/24 trazodone 50 mg tablet 100 mg PO HS PRN Insomnia 08/12/23 09/11/24 buprenorphine 8 mg-naloxone 2 mg 2 film PO DAILY 08/13/23 09/11/24 sublingual film (Suboxone) gabapentin 600 mg tablet 600 mg PO BID 09/11/24 09/11/24 Allergies Allergies Allergy/AdvReac Type Severity Reaction Status Date / Time No Known Drug Allergies Allergy Verified 09/11/24 12:07 PFSH Active Problems All Active Problems (Updated 09/11/24 @ 17:34 by Gilson Awad MD) Bipolar 1 disorder (Acute) Hypernatremia (Acute) Valproic acid toxicity (Acute) Accidental overdose of valproate sodium (Acute) Medical History Medical History (Updated 09/11/24 @ 17:34 by Gilson Awad MD) Opioid abuse Social History Social History Smoking Status: Never smoker Do you dip or chew tobacco?: No Do you vape?: Yes Relationship: Level: Independent Do you feel safe in your home environment?: No Suffered physical, verbal, emotional, or financial abuse?: No History of Abuse: No Substance Use: former substance user Substance Use Details: opioids, methamphetamine Exam Constitutional normal general appearance and no apparent distress Eyes open spontaneously, responds to questions, but mildly slow to respond. Alexx hartley responds with I do not know HENMT normocephalic and head/scalp atraumatic Eyes PERRL and EOMs intact bilaterally Neck/C-Spine visual inspection normal and trachea midline Respiratory breath sounds equal bilaterally and normal respiratory effort Cardiovascular normal heart rate noted and regular rhythm noted Gastrointestinal abdomen normal to inspection, abdomen soft to palpation, nontender to palpation and nondistended Skin skin color normal and no rash Results Vitals Vitals: Vital Signs - 24 hr 09/11/24 11:56 09/11/24 12:02 09/11/24 12:30 Temperature 36.7 C Temperature Source Temporal Artery Scan Pulse Rate 105 H 104 H Respiratory Rate 20 14 Blood Pressure 172/94 H O2 Saturation 98 98 O2 Source Room air Pain Intensity 4 0 09/11/24 13:00 09/11/24 14:00 Temperature Temperature Source Pulse Rate 98 100 Respiratory Rate 18 15 Blood Pressure 132/83 H 151/81 H O2 Saturation 98 97 O2 Source Room air Room air Pain Intensity Oxygen O2 Source Room air EKG (time done) 1157: EKG releavant findings:: EKG personally interpreted by author of this note. Relevant findings are: Rate: Other (102 bpm. Sinus tachycardia. Normal axis. Normal HI interval. Normal ST segments. Borderline prolonged QT) Labs Labs: Laboratory Tests 09/11/24 09/11/24 09/11/24 12:18 12:26 13:20 WBC 2.2 L RBC 5.11 Hgb 15.0 Hct 45.2 MCV 88.5 MCH 29.4 MCHC 33.2 RDW 12.1 Plt Count 198 MPV 10.1 Neut # (Auto) Not Reportable Lymph # (Auto) Not Reportable [place] # (Auto) Not Reportable Eos # (Auto) Not Reportable Baso # (Auto) Not Reportable Absolute Nucleated RBC Not Reportable Total Counted 100 Band Neuts % (Manual) 0 Abnorm Lymph % (Manual) 0 Nucleated RBC % Not Reportable Neutrophils # (Manual) 1.5 Lymphocytes # (Manual) 0.7 L Monocytes # (Manual) 0.0 Eosinophils # (Manual) 0.0 Basophils # (Manual) 0.0 Differential Comment MANUAL DIFFERENTIAL Manual Slide Review Indicated WBC Morphology NORMAL APPEARANCE Platelet Estimate NORMAL (130-450,000) Platelet Morphology NORMAL APPEARANCE RBC Morph Micro Appear NORMAL APPEARANCE Sodium 146 H Potassium 4.3 Chloride 102 Carbon Dioxide 26 Anion Gap 18.0 H BUN 7 Creatinine 1.0 Estimated GFR (MDRD) 93 Glucose 126 H Calcium 8.8 Magnesium 1.9 Total Bilirubin 0.5 AST 33 ALT 29 Alkaline Phosphatase 97 Ammonia 53.2 Total Creatine Kinase 68 Total Protein 8.5 Albumin 5.1 Globulin 3.4 Albumin/Globulin Ratio 1.5 Lipase 40 TSH 0.21 L Urine Color YELLOW Urine Clarity CLEAR Urine pH 6.5 Ur Specific [place] 1.010 Urine Protein NEGATIVE Urine Glucose (UA) NEGATIVE Urine Ketones 15 H Urine Occult Blood NEGATIVE Urine Nitrite NEGATIVE Urine Bilirubin NEGATIVE Urine Urobilinogen 0.2 (NORMAL) Ur Leukocyte Esterase NEGATIVE Ur Microscopic Review NOT INDICATED Urine Culture Comments NOT INDICATED Last Dose Date UNK Last Dose Time UNK Salicylates < 1.5 Urine Opiates Screen NEGATIVE Ur Buprenorphine Scrn NEGATIVE Ur Oxycodone Screen NEGATIVE Urine Methadone Screen NEGATIVE Acetaminophen 0.2 Ur Barbiturates Screen NEGATIVE Valproic Acid > 450.0 H* Ur Tricyclics Screen NEGATIVE Ur Phencyclidine Scrn NEGATIVE Ur Amphetamine Screen NEGATIVE U Methamphetamines Scrn NEGATIVE U Benzodiazepines Scrn NEGATIVE Urine Cocaine Screen NEGATIVE U Cannabinoids Screen NEGATIVE Ur Drug Screen Comment CUTOFF CONC BELOW: Ethyl Alcohol < 10.0 PD Medical Decision Making ED course Complexity details: reviewed results, re-evaluated patient, considered differential and d/w patient ED course: Patient is a 24-year-old male with reported intentional ingestion of valproic acid. He is unsure if he was suicidal or just trying to get high. Appears to have some altered mental status from the elevated valproic acid. Ammonia level was sent after speaking with poison control. Poison control recommends obtaining levels every 2-4 hours to ensure that the valproic acid is coming down. Will likely need supportive care. IV fluids started. Discussed the case with Dr. Paul, hospitalist who will accept. Ammonia level is less than 100, per poison control does not need L-carnitine This document was made in part using voice recognition software. While efforts are made to proofread this document, sound alike and grammatical errors may occur. Discharge Plan Discharge Patient Disposition: [facility] DC/Xfer Condition: Stable Clinical Impression: Accidental overdose of valproate sodium Interventions: ED Admission Assessment Last Done: 09/11/24 14:30
[2024-09-11 12:41] LABS: COCAINE SCREEN URINE NEGATIVE (NEGATIVE); METHAMPHETAMINES SCREEN, URINE NEGATIVE (NEGATIVE); THC CANNABINOID SCREEN, URINE NEGATIVE (NEGATIVE)
[2024-09-11 12:42] LABS: AMPHETAMINE SCREEN,URINE NEGATIVE (NEGATIVE); BARBITURATE SCREEN,UR NEGATIVE (NEGATIVE); BENZODIAZEPINES SCREEN, URINE NEGATIVE (NEGATIVE); BUPRENORPHINE SCREEN, URINE NEGATIVE (NEGATIVE); METHADONE SCREEN, URINE NEGATIVE (NEGATIVE); OPIATE SCREEN, URINE NEGATIVE (NEGATIVE); OXYCODONE SCREEN, URINE NEGATIVE (NEGATIVE); TRICYCLIC ANTIDEPRESSANT,URINE NEGATIVE (NEGATIVE)
[2024-09-11 12:55] LABS: ACETAMINOPHEN 0.2 ug/mL; CK- CREATINE KINASE 68 IU/L (30-223); ETOH - ETHANOL < 10.0 mg/dL; LIPASE 40 U/L (11-82); MAGNESIUM 1.9 mg/dL (1.7-2.3); VALPROIC ACID (DEPAKOTE) > 450.0 ug/mL
[2024-09-11 12:56] LABS: ALBUMIN 5.1 g/dL (3.2-5.5); ALBUMIN/GLOBULIN RATIO 1.5 (1.0-2.2); ALKALINE PHOSPHATASE 97 IU/L (42-121); ALT ALANINE AMINOTRANSFERASE 29 IU/L (10-60); AST ASPARTATE AMINOTRANSFERASE 33 IU/L (10-42); BILIRUBIN,TOTAL 0.5 mg/dL (0.2-1.0); BUN - BLOOD UREA NITROGEN 7 mg/dL (6-20); CALCIUM 8.8 mg/dL (8.5-10.3); CARBON DIOXIDE - CO2 26 mmol/L (21-32); CHLORIDE 102 mmol/L (101-111); GFR - MDRD 93 (>89); GLUCOSE 126 mg/dL (74-104); POTASSIUM 4.3 mmol/L (3.5-4.5); SODIUM 146 mmol/L (135-145); TOTAL PROTEIN 8.5 g/dL (6.4-8.9)
[2024-09-11 13:05] LABS: THYROID STIMULATING HORMONE 0.21 uIU/mL (0.34-5.60)
[2024-09-11] MEDS: SODIUM CHLORIDE 0.9% 1,000 ML IV STA ×2 (13:13)
[2024-09-11 13:14] LABS: SALICYLATE < 1.5 mg/dL
[2024-09-11 13:20] LABS: LYMPHOCYTES # (MANUAL) 0.7 10^3/uL (1.5-3.5); LYMPHOCYTES % (MANUAL) 31 %; NEUTROPHILS # (MANUAL) 1.5 10^3/uL (1.5-6.6); PLATELET ESTIMATE, MANUAL NORMAL (130-450,000) (NORMAL); PLATELET MORPHOLOGY NORMAL APPEARANCE (NORMAL); RBC MORPHOLOGY (MULTIPLE) NORMAL APPEARANCE (NORMAL); WBC MORPHOLOGY (MULTIPLE) NORMAL APPEARANCE (NORMAL)
[2024-09-11 13:21] LABS: DIFFERENTIAL COMMENT MANUAL DIFFERENTIAL
[2024-09-11] MEDS ORDERED: SODIUM CHLORIDE FLUSH 0.9% 10 ML SYRINGE IVP PRN (14:57)
[2024-09-11] MEDS ORDERED: ONDANSETRON ODT 4 MG TABLET TL PRN (14:57)
[2024-09-11] MEDS ORDERED: ONDANSETRON 4 MG/2 ML VIAL IVP PRN (14:57)
--- NOTE | 2024-09-11 15:06 | HISTORY & PHYSICAL EXAMINATION ---
Chief Complaint Chief Complaint Chief Complaint: Valproic acid overdose History of Present Illness Admitted From Admitted From:: Home History Obtained From Records Reviewed: Yes History obtained from: Patient Exam Limitations: Does not remember details of event History of Present Illness HPI Comment/Other: Patient is a 24-year-old male with a history of bipolar disorder, OCD, autism who presents for valproic acid overdose. Patient does not recall much of the events of yesterday. He states that he had a beer with his grandpa, and then went up to his room, and took trazodone and hydroxyzine. He states that he does not have a prescription for either, but was given to them by a family member to help him sleep. He had 2 bottles of liquid valproic acid that were prescribed to him in the past. When asked why he takes these, he said that it was for bipolar disorder. However, he does state that he may have a seizure history in the past. He is not compliant with this and does not take them daily. He thinks he drank 1 bottle, and then another quarter of a bottle. He is able to tell me that they are 473 mL bottles and that it is a 250 mg per 5 mL solution. He does not know what his doses. When asked if he took these bottles to hurt himself, he states that he is unsure. He does endorse that he has been feeling pretty depressed and down. Looking at previous ER notes, in 10/03, patient was actively suicidal, and was transferred to acute psychiatric facility. Past medical history: Opioid use, alcohol use, autism, bipolar disorder, suicidal ideation Medications: Patient states he is not prescribed any at this time Allergies: No known drug allergies Surgical history: None Social history: States he drinks 3 to 6 pack of beer every day. Has had an episode of alcohol withdrawals. Denies any other recreational drug use including marijuana, cocaine, heroin. [place] his grandfather with his business. Meds/Allgy Home Medications Ambulatory Orders Medication Instructions Recorded Confirmed hydroxyzine pamoate 50 mg capsule 50 mg PO QPM PRN sleep 08/12/23 09/11/24 trazodone 50 mg tablet 100 mg PO HS PRN Insomnia 08/12/23 09/11/24 buprenorphine 8 mg-naloxone 2 mg 2 film PO DAILY 08/13/23 09/11/24 sublingual film (Suboxone) gabapentin 600 mg tablet 600 mg PO BID 09/11/24 09/11/24 Allergies Allergies Allergy/AdvReac Type Severity Reaction Status Date / Time No Known Drug Allergies Allergy Verified 09/11/24 12:07 PFSH Active Problems All Active Problems (Updated 09/11/24 @ 17:34 by Gilson Awad MD) Bipolar 1 disorder (Acute) Hypernatremia (Acute) Valproic acid toxicity (Acute) Accidental overdose of valproate sodium (Acute) Medical History Medical History (Updated 09/11/24 @ 17:34 by Gilson Awad MD) Opioid abuse Social History Social History Smoking Status: Never smoker Do you dip or chew tobacco?: No Do you vape?: Yes Relationship: Level: Independent Do you feel safe in your home environment?: No Suffered physical, verbal, emotional, or financial abuse?: No History of Abuse: No Substance Use: former substance user Substance Use Details: opioids, methamphetamine POLST Patient has POLST: No POLST Status: Full Code Review of Systems Constitutional Reports: Malaise, Weakness, Diaphoresis and Change in sleep pattern; Denies: Fatigue, Fever, Chills, Night sweats or Changes in appetite or eating habits Eyes Denies: Pain, Irritation, Amaurosis or Blurry vision Ears, nose, mouth, and throat Denies: Ear pain, Ear discharge, Hearing loss, Hearing aids, Difficulty swallowing, Neck pain or Throat swelling Cardiovascular Denies: Irregular heart rate, chest pain, palpitations, edema, Syncope, lightheadedness or shortness of breath with exertion Respiratory Denies: Shortness of breath, Cough, Sputum production, Wheezing or Apnea Gastrointestinal Denies: Abdominal pain, Nausea, Vomiting, Bile emesis, Difficulty swallowing, Feeling full early, Change in bowel habits or Painful bowel movements Genitourinary Denies: Painful urination, Flank pain, Incontinence, Urinary frequency or Urinary urgency Musculoskeletal Denies: Back pain, Neck pain, Extremity pain or Extremity swelling Integumentary/Breast Denies: Rash, Itching, Dryness, Redness or Skin pain Neurological Reports: General weakness; Denies: Headache, Focal weakness, Weakness in extremities or Numbness in extremities Psychiatric Reports: Depression; Denies: Anxiety, Mood swings, Panic attacks, Change in sleep pattern, Hopelessness, Paranoia or Delusions Endocrine Denies: Excessive urination, Excessive thirst, Polyphagia or Fatigue Hematologic/Lymphatic Denies: Anemia, Easy bruising, Petechiae or Easy bleeding Allergic/Immunologic Denies: Hives, Throat swelling, Tongue swelling, Facial swelling or Wheezing Prior Level of Functionality: Independent of ADLs. Exam Constitutional abnormal general appearance (disheveled), no apparent distress, abnormal body habitus (underweight) and alert HENMT normocephalic and head/scalp atraumatic Eyes PERRL (pinpoint pupils, reactive to light), EOMs intact bilaterally and conjunctivae normal Neck/C-Spine visual inspection normal, trachea midline and cervical spine nontender Lymph no lymphedema noted Chest inspection of chest normal Respiratory breath sounds equal bilaterally, normal respiratory effort, clear to auscultation bilaterally, no wheezes, no rales and no retractions Cardiovascular heart rate abnormal (tachycardic), regular rhythm noted, no gallop, no rub and no murmur Gastrointestinal abdomen normal to inspection, nondistended, normoactive bowel sounds, no hepatosplenomegaly and no masses Genitourinary no CVA tenderness and bladder normal to palpation Back/Pelvis spine normal to inspection and no thoracic spine tenderness Extremities normal to inspection, normal to palpation, no tenderness and full ROM Neurology automobile body worker II-XII intact, no movement abnormality noted and no focal motor deficit noted Psychiatry mental status grossly normal, oriented x3, thought process normal, cooperative and affect normal Skin skin color normal, no rash and no lesions Conclusion/Plan Problem List (1) Valproic acid toxicity: Plan: Patient drank 2 bottles of liquid valproic acid that were prescribed to him in the past. When asked why he takes these, he said that it was for bipolar disorder. However, he does state that he may have a seizure history in the past. He is not compliant with this and does not take them daily. He thinks he drank 1 bottle, and then another quarter of a bottle. He is able to tell me that they are 473 mL bottles and that it is a 250 mg per 5 mL solution. That means he's ingested about 29 g of valproic acid. Emergency room spoke with Poison Control; they reccomend close monitoring for mental status changes. They also reccomend checking valproic acid levels every 4 hours until they are downtrending. Telemetry ordered. Close monitoring in the ICU. Qualifiers: Encounter type: initial encounter Injury intent: undetermined intent Q ualified Code(s): T42.6X4A - Poisoning by other antiepileptic and sedative- hypnotic drugs, undetermined, initial encounter (2) Hypernatremia: Plan: Likely due to above. Will do BMPs every 4 hours to assess for any electrolyte abnormalities that develop over the next 24 hours. (3) Opioid abuse: Plan: Hold Suboxone at this time due to concern for lethargy. (4) Alcohol abuse: Plan: [facility] protocol in place for close monitoring of withdrawal symptoms. (5) Bipolar 1 disorder: Plan: Per documentation, patient has a history of bipolar disorder. Unclear if this overdose is a suicide attempt, patient goes back and forth. Currently denying any active suicidal or homicidal ideation. Will have psych eval patient when more stable. Lab Results 09/11/24 12:26 09/11/24 16:34
--- NOTE | 2024-09-11 15:45 | PHARMACY PROGRESS NOTE ---
Best Possible Medication History Admit Date and Time: 09/11/24 [id number] Home Medications Medication Instructions Recorded Confirmed Type hydroxyzine pamoate 50 mg capsule 50 mg PO QPM PRN sleep 08/12/23 09/11/24 History trazodone 50 mg tablet 100 mg PO HS PRN Insomnia 08/12/23 09/11/24 History buprenorphine 8 mg-naloxone 2 mg 2 film PO DAILY 08/13/23 09/11/24 History sublingual film (Suboxone) gabapentin 600 mg tablet 600 mg PO BID 09/11/24 09/11/24 History Processed by: Pharmacy Medications reviewed in ED?: No Medication History completed: Yes Patient Interview: Completed [facility] Statement: As the person ultimately responsible for medication therapy, providers are able to order a medication from an existing home medication list in [facility] via the "Reconcile Routine" prior to Confirmation of that medication by service support representative. Such practice is discouraged except when the physician, in their clinical judgment, deems that a medical need exists for a medication without regard to previous use.
[2024-09-11 17:07] LABS: BUN - BLOOD UREA NITROGEN 9 mg/dL (6-20); CALCIUM 7.6 mg/dL (8.5-10.3); CARBON DIOXIDE - CO2 29 mmol/L (21-32); CHLORIDE 106 mmol/L (101-111); CREATININE 0.9 mg/dL (0.6-1.3); GFR - MDRD 106 (>89); GLUCOSE 102 mg/dL (74-104); POTASSIUM 3.8 mmol/L (3.5-4.5); SODIUM 144 mmol/L (135-145); VALPROIC ACID (DEPAKOTE) 147.5 ug/mL
[2024-09-11] MEDS ORDERED: LORazepam 2 MG/ML VIAL IVP PRN (17:32)
[2024-09-11] MEDS: SODIUM CHLORIDE FLUSH 0.9% 10 ML SYRINGE IVP SCH (17:52)
[2024-09-11 17:54] LABS: ALBUMIN 4.4 g/dL (3.2-5.5); BILIRUBIN,TOTAL 0.6 mg/dL (0.2-1.0); TOTAL PROTEIN 7.1 g/dL (6.4-8.9)
[2024-09-11] MEDS: LORazepam 1 MG TABLET PO PRN (18:36)
[2024-09-11] MEDS: atenoloL 25 MG TABLET PO SCH (21:17)
[2024-09-11 21:22] LABS: CALCIUM 7.7 mg/dL (8.5-10.3); CREATININE 0.9 mg/dL (0.6-1.3); POTASSIUM 3.4 mmol/L (3.5-4.5)
[2024-09-12 01:27] LABS: CALCIUM 7.5 mg/dL (8.5-10.3); CREATININE 0.8 mg/dL (0.6-1.3); POTASSIUM 3.2 mmol/L (3.5-4.5)
[2024-09-12 04:53] LABS: CALCIUM, IONIZED 1.06 mmol/L (1.09-1.30); VBG PH 7.473 (7.31-7.41)
[2024-09-12 04:54] LABS: BASOPHILS % (AUTO) 0.5 %; HCT - HEMATOCRIT 38.1 % (42.0-52.0); HGB - HEMOGLOBIN 12.6 g/dL (14.0-18.0); LYMPHOCYTES # (AUTO) 1.8 10^3/uL (1.5-3.5); LYMPHOCYTES % (AUTO) 43.7 %; MEAN CORPUSCULAR HEMOGLOBIN 29.6 pg (27.0-31.0); MEAN CORPUSCULAR HGB CONC 33.1 g/dL (32.0-36.0); MEAN CORPUSCULAR VOLUME 89.4 fL (80.0-94.0); MEAN PLATELET VOLUME 9.9 fL (7.4-11.4); MONOCYTES # (AUTO) 0.3 10^3/uL (0.0-1.0); MONOCYTES % (AUTO) 6.4 %; NEUTROPHILS # (AUTO) 2.1 10^3/uL (1.5-6.6); NEUTROPHILS % (AUTO) 49.4 %; PLT - PLATELET COUNT 140 10^3/uL (130-450); RED BLOOD COUNT 4.26 10^6/uL (4.70-6.10); RED CELL DISTRIBUTION WIDTH 12.3 % (12.0-15.0); WHITE BLOOD COUNT 4.2 x10^3/uL (4.8-10.8)
[2024-09-12 05:12] LABS: CALCIUM 7.7 mg/dL (8.5-10.3); CREATININE 0.8 mg/dL (0.6-1.3); MAGNESIUM 2.1 mg/dL (1.7-2.3); PHOSPHORUS 4.2 mg/dL (2.5-5.0); POTASSIUM 3.5 mmol/L (3.5-4.5)
[2024-09-12] MEDS: CALCIUM CARBONATE CHEW 500 MG TABLET PO SCH (06:36)
[2024-09-12] MEDS: POTASSIUM CHLORIDE 20 MEQ TABLET PO SCH (06:36)
[2024-09-12] MEDS: PANTOPRAZOLE 40 MG VIAL IVP SCH (06:37)
[2024-09-12 08:23] LABS: VALPROIC ACID (DEPAKOTE) 53.3 ug/mL
[2024-09-12] MEDS: MULTIVITAMIN 10 ML, THIAMINE INJ 100 MG, FOLIC ACID INJ 1 MG in SODIUM CHLORIDE 0.9% 1,... IV SCH (09:37)
[2024-09-12] MEDS: ENOXAPARIN 40 MG/0.4 ML SYRINGE SUBQ SCH (09:37)
--- NOTE | 2024-09-12 11:37 | PROVIDER PROGRESS NOTE ---
Subjective Subjective Subjective: Patient states he feels better today. He is less jittery, has less shakes. He still embarrassed about the events of yesterday. He states he has been feeling pretty depressed lately. His mood has been down. He has suicidal ideation. Current Medications Current Medications Current Medications: Current Medications Generic Name Dose Route Start Last Admin Trade Name Freq PRN Reason Stop Dose Admin Enoxaparin Sodium 40 mg 09/12/24 09:00 09/12/24 09:37 Enoxaparin 40 Mg/0.4 Ml Syringe SUBQ 40 mg DAILY GUERITA Administration Multivitamins 10 ml/ Thiamine 1,011.2 mls @ 100 mls/hr 09/12/24 09:00 09/12/24 09:37 HCl 100 mg/ Folic Acid 1 mg/ IV 100 mls/hr Sodium Chloride DAILY GUERITA Administration Lorazepam 1 mg 09/11/24 17:32 09/12/24 09:38 Lorazepam 1 Mg Tablet PO 1 mg Q1H PRN Administration CIWA > 8 Protocol Lorazepam 1 mg 09/11/24 17:32 Lorazepam 2 Mg/Ml Vial IVP Q30M PRN CIWA >8 Protocol Pantoprazole Sodium 40 mg 09/13/24 07:00 Pantoprazole 40 Mg Tablet PO QDAC GUERITA Sodium Chloride 10 ml 09/11/24 17:00 09/12/24 09:38 Sodium Chloride Flush 0.9% 10 Ml Syringe IVP 10 ml 0100,0900,1700 GUERITA Administration Sodium Chloride 10 ml 09/11/24 14:57 Sodium Chloride Flush 0.9% 10 Ml Syringe IVP PRN PRN NEEDED PER PROVIDER ORDERS Objective Vital Signs/Intake & Output Reviewed Vital Signs: Yes Vital Signs: Vital Signs x48h Pulse Resp BP Pulse Ox 09/12/24 10:58 66 22 130/73 97 09/12/24 09:55 68 19 127/87 97 09/12/24 09:00 65 16 127/87 96 09/12/24 08:00 79 17 127/87 98 09/12/24 07:00 63 18 132/88 H 96 09/12/24 06:00 65 18 110/62 99 09/12/24 05:00 60 14 126/84 97 09/12/24 04:00 73 22 107/62 96 Intake & Output: Intake & Output 09/09/24 09/10/24 09/11/24 09/12/24 23:59 23:59 23:59 23:59 Intake Total 2868 / 2868 240 / 240 Output Total 200 / 200 0 / 0 Balance 2668 / 2668 240 / 240 Weight (kg) 69 kg 70 kg Objective General Appearance: positive No acute distress, Alert and Anxious (Mildly anxious ); negative Lethargic Eyes Bilateral: positive Normal inspection, PERRL and EOMI ENT: positive ENT inspection nml, Pharynx nml and No signs of dehydration Neck: positive Nml inspection, Thyroid nml and No JVD Respiratory: positive Chest non-tender, No respiratory distress and Breath sounds nml; negative Wheezes, Rales or Rhonchi Cardiovascular: positive Regular rate & rhythm, No murmur and No gallop Abdomen: positive Non-tender, No organomegaly and No distention; negative Tenderness, Guarding, Rebound or Hepatomegaly Back: positive Nml inspection; negative CVA tenderness (R) or CVA tenderness (L) Skin: positive Color nml, No rash, Warm and Dry Extremities: positive Non-tender, Full ROM, Nml appearance and No pedal edema Neurologic/Psychiatric: positive Oriented x3, Motor nml and Mood/affect nml Lab Results 09/12/24 04:44 09/12/24 04:44 Other Labs: Lab Results x24hrs 09/12/24 09/12/24 09/11/24 Range/Units 04:44 01:00 21:04 WBC 4.2 L (4.8-10.8) x10^3/uL RBC 4.26 L (4.70-6.10) 10^6/uL Hgb 12.6 L (14.0-18.0) g/dL Hct 38.1 L (42.0-52.0) % MCV 89.4 (80.0-94.0) fL MCH 29.6 (27.0-31.0) pg MCHC 33.1 (32.0-36.0) g/dL RDW 12.3 (12.0-15.0) % Plt Count 140 (130-450) 10^3/uL MPV 9.9 (7.4-11.4) fL Neut # (Auto) 2.1 Lymph # (Auto) 1.8 [place] # (Auto) 0.3 Eos # (Auto) 0.0 Baso # (Auto) 0.0 Absolute Nucleated RBC 0.00 Total Counted Band Neuts % (Manual) (0 - 10) % Abnorm Lymph % (Manual) % Nucleated RBC % 0.0 Neutrophils # (Manual) (1.5-6.6) 10^3/uL Lymphocytes # (Manual) (1.5-3.5) 10^3/uL Monocytes # (Manual) (0.0-1.0) 10^3/uL Eosinophils # (Manual) (0-0.7) 10^3/uL Basophils # (Manual) (0-0.1) 10^3/uL Differential Comment Manual Slide Review WBC Morphology (NORMAL) Platelet Estimate (NORMAL) Platelet Morphology (NORMAL) RBC Morph Micro Appear (NORMAL) VBG pH 7.473 H (7.31-7.41) Ionized Calcium 1.06 L (1.09-1.30) mmol/L Sodium 141 141 140 (135-145) mmol/L Potassium 3.5 3.2 L 3.4 L (3.5-4.5) mmol/L Chloride 103 103 104 (101-111) mmol/L Carbon Dioxide 30 28 28 (21-32) mmol/L Anion Gap 8.0 10.0 8.0 (6-13) BUN 14 14 13 (6-20) mg/dL Creatinine 0.8 0.8 0.9 (0.6-1.3) mg/dL Estimated GFR (MDRD) 121 121 106 (>89) Glucose 107 H 98 118 H (74-104) mg/dL Calcium 7.7 L 7.5 L 7.7 L (8.5-10.3) mg/dL Phosphorus 4.2 (2.5-5.0) mg/dL Magnesium 2.1 (1.7-2.3) mg/dL Total Bilirubin (0.2-1.0) mg/dL AST (10-42) IU/L ALT (10-60) IU/L Alkaline Phosphatase (42-121) IU/L Ammonia (18-72) umol/L Total Creatine Kinase (30-223) IU/L Total Protein (6.4-8.9) g/dL Albumin (3.2-5.5) g/dL Globulin (2.1-4.2) g/dL Albumin/Globulin Ratio (1.0-2.2) Lipase (11-82) U/L TSH (0.34-5.60) uIU/mL Urine Color Urine Clarity (CLEAR) Urine pH (5.0-7.5) PH Ur Specific Roscoe (1.002-1.030) Urine Protein (NEGATIVE) mg/dL Urine Glucose (UA) (NEGATIVE) mg/dL Urine Ketones (NEGATIVE) mg/dL Urine Occult Blood (NEGATIVE) Urine Nitrite (NEGATIVE) Urine Bilirubin (NEGATIVE) Urine Urobilinogen (NORMAL) E.U./dL Ur Leukocyte Esterase (NEGATIVE) Ur Microscopic Review Urine Culture Comments Nasal Screen MRSA (PCR) (NEGATIVE) Last Dose Date UNK Last Dose Time UNK Salicylates mg/dL Urine Opiates Screen (NEGATIVE) Ur Buprenorphine Scrn (NEGATIVE) Ur Oxycodone Screen (NEGATIVE) Urine Methadone Screen (NEGATIVE) Acetaminophen ug/mL Ur Barbiturates Screen (NEGATIVE) Valproic Acid 53.3 ug/mL Ur Tricyclics Screen (NEGATIVE) Ur Phencyclidine Scrn (NEGATIVE) Ur Amphetamine Screen (NEGATIVE) U Methamphetamines Scrn (NEGATIVE) U Benzodiazepines Scrn (NEGATIVE) Urine Cocaine Screen (NEGATIVE) U Cannabinoids Screen (NEGATIVE) Ur Drug Screen Comment Ethyl Alcohol mg/dL 09/11/24 09/11/24 09/11/24 Range/Units 16:34 14:45 13:20 WBC (4.8-10.8) x10^3/uL RBC (4.70-6.10) 10^6/uL Hgb (14.0-18.0) g/dL Hct (42.0-52.0) % MCV (80.0-94.0) fL MCH (27.0-31.0) pg MCHC (32.0-36.0) g/dL RDW (12.0-15.0) % Plt Count (130-450) 10^3/uL MPV (7.4-11.4) fL Neut # (Auto) Lymph # (Auto) [place] # (Auto) Eos # (Auto) Baso # (Auto) Absolute Nucleated RBC Total Counted Band Neuts % (Manual) (0 - 10) % Abnorm Lymph % (Manual) % Nucleated RBC % Neutrophils # (Manual) (1.5-6.6) 10^3/uL Lymphocytes # (Manual) (1.5-3.5) 10^3/uL Monocytes # (Manual) (0.0-1.0) 10^3/uL Eosinophils # (Manual) (0-0.7) 10^3/uL Basophils # (Manual) (0-0.1) 10^3/uL Differential Comment Manual Slide Review WBC Morphology (NORMAL) Platelet Estimate (NORMAL) Platelet Morphology (NORMAL) RBC Morph Micro Appear (NORMAL) VBG pH (7.31-7.41) Ionized Calcium (1.09-1.30) mmol/L Sodium 144 (135-145) mmol/L Potassium 3.8 (3.5-4.5) mmol/L Chloride 106 (101-111) mmol/L Carbon Dioxide 29 (21-32) mmol/L Anion Gap 9.0 (6-13) BUN 9 (6-20) mg/dL Creatinine 0.9 (0.6-1.3) mg/dL Estimated GFR (MDRD) 106 (>89) Glucose 102 (74-104) mg/dL Calcium 7.6 L (8.5-10.3) mg/dL Phosphorus (2.5-5.0) mg/dL Magnesium (1.7-2.3) mg/dL Total Bilirubin 0.6 (0.2-1.0) mg/dL AST 27 (10-42) IU/L ALT 23 (10-60) IU/L Alkaline Phosphatase 79 (42-121) IU/L Ammonia 53.2 (18-72) umol/L Total Creatine Kinase (30-223) IU/L Total Protein 7.1 (6.4-8.9) g/dL Albumin 4.4 (3.2-5.5) g/dL Globulin (2.1-4.2) g/dL Albumin/Globulin Ratio (1.0-2.2) Lipase (11-82) U/L TSH (0.34-5.60) uIU/mL Urine Color Urine Clarity (CLEAR) Urine pH (5.0-7.5) PH Ur Specific Roscoe (1.002-1.030) Urine Protein (NEGATIVE) mg/dL Urine Glucose (UA) (NEGATIVE) mg/dL Urine Ketones (NEGATIVE) mg/dL Urine Occult Blood (NEGATIVE) Urine Nitrite (NEGATIVE) Urine Bilirubin (NEGATIVE) Urine Urobilinogen (NORMAL) E.U./dL Ur Leukocyte Esterase (NEGATIVE) Ur Microscopic Review Urine Culture Comments Nasal Screen MRSA (PCR) NEGATIVE (NEGATIVE) Last Dose Date UNKNOWN Last Dose Time UNKNOWN Salicylates mg/dL Urine Opiates Screen (NEGATIVE) Ur Buprenorphine Scrn (NEGATIVE) Ur Oxycodone Screen (NEGATIVE) Urine Methadone Screen (NEGATIVE) Acetaminophen ug/mL Ur Barbiturates Screen (NEGATIVE) Valproic Acid 147.5 ug/mL Ur Tricyclics Screen (NEGATIVE) Ur Phencyclidine Scrn (NEGATIVE) Ur Amphetamine Screen (NEGATIVE) U Methamphetamines Scrn (NEGATIVE) U Benzodiazepines Scrn (NEGATIVE) Urine Cocaine Screen (NEGATIVE) U Cannabinoids Screen (NEGATIVE) Ur Drug Screen Comment Ethyl Alcohol mg/dL 09/11/24 09/11/24 Range/Units 12:26 12:18 WBC 2.2 L (4.8-10.8) x10^3/uL RBC 5.11 (4.70-6.10) 10^6/uL Hgb 15.0 (14.0-18.0) g/dL Hct 45.2 (42.0-52.0) % MCV 88.5 (80.0-94.0) fL MCH 29.4 (27.0-31.0) pg MCHC 33.2 (32.0-36.0) g/dL RDW 12.1 (12.0-15.0) % Plt Count 198 (130-450) 10^3/uL MPV 10.1 (7.4-11.4) fL Neut # (Auto) Not Reportable Lymph # (Auto) Not Reportable [place] # (Auto) Not Reportable Eos # (Auto) Not Reportable Baso # (Auto) Not Reportable Absolute Nucleated RBC Not Reportable Total Counted 100 Band Neuts % (Manual) 0 (0 - 10) % Abnorm Lymph % (Manual) 0 % Nucleated RBC % Not Reportable Neutrophils # (Manual) 1.5 (1.5-6.6) 10^3/uL Lymphocytes # (Manual) 0.7 L (1.5-3.5) 10^3/uL Monocytes # (Manual) 0.0 (0.0-1.0) 10^3/uL Eosinophils # (Manual) 0.0 (0-0.7) 10^3/uL Basophils # (Manual) 0.0 (0-0.1) 10^3/uL Differential Comment MANUAL DIFFERENTIAL Manual Slide Review Indicated WBC Morphology NORMAL APPEARANCE (NORMAL) Platelet Estimate NORMAL (130-450,000) (NORMAL) Platelet Morphology NORMAL APPEARANCE (NORMAL) RBC Morph Micro Appear NORMAL APPEARANCE (NORMAL) VBG pH (7.31-7.41) Ionized Calcium (1.09-1.30) mmol/L Sodium 146 H (135-145) mmol/L Potassium 4.3 (3.5-4.5) mmol/L Chloride 102 (101-111) mmol/L Carbon Dioxide 26 (21-32) mmol/L Anion Gap 18.0 H (6-13) BUN 7 (6-20) mg/dL Creatinine 1.0 (0.6-1.3) mg/dL Estimated GFR (MDRD) 93 (>89) Glucose 126 H (74-104) mg/dL Calcium 8.8 (8.5-10.3) mg/dL Phosphorus (2.5-5.0) mg/dL Magnesium 1.9 (1.7-2.3) mg/dL Total Bilirubin 0.5 (0.2-1.0) mg/dL AST 33 (10-42) IU/L ALT 29 (10-60) IU/L Alkaline Phosphatase 97 (42-121) IU/L Ammonia (18-72) umol/L Total Creatine Kinase 68 (30-223) IU/L Total Protein 8.5 (6.4-8.9) g/dL Albumin 5.1 (3.2-5.5) g/dL Globulin 3.4 (2.1-4.2) g/dL Albumin/Globulin Ratio 1.5 (1.0-2.2) Lipase 40 (11-82) U/L TSH 0.21 L (0.34-5.60) uIU/mL Urine Color YELLOW Urine Clarity CLEAR (CLEAR) Urine pH 6.5 (5.0-7.5) PH Ur Specific [place]coe 1.010 (1.002-1.030) Urine Protein NEGATIVE (NEGATIVE) mg/dL Urine Glucose (UA) NEGATIVE (NEGATIVE) mg/dL Urine Ketones 15 H (NEGATIVE) mg/dL Urine Occult Blood NEGATIVE (NEGATIVE) Urine Nitrite NEGATIVE (NEGATIVE) Urine Bilirubin NEGATIVE (NEGATIVE) Urine Urobilinogen 0.2 (NORMAL) (NORMAL) E.U./dL Ur Leukocyte Esterase NEGATIVE (NEGATIVE) Ur Microscopic Review NOT INDICATED Urine Culture Comments NOT INDICATED Nasal Screen MRSA (PCR) (NEGATIVE) Last Dose Date UNK Last Dose Time UNK Salicylates < 1.5 mg/dL Urine Opiates Screen NEGATIVE (NEGATIVE) Ur Buprenorphine Scrn NEGATIVE (NEGATIVE) Ur Oxycodone Screen NEGATIVE (NEGATIVE) Urine Methadone Screen NEGATIVE (NEGATIVE) Acetaminophen 0.2 ug/mL Ur Barbiturates Screen NEGATIVE (NEGATIVE) Valproic Acid > 450.0 H* ug/mL Ur Tricyclics Screen NEGATIVE (NEGATIVE) Ur Phencyclidine Scrn NEGATIVE (NEGATIVE) Ur Amphetamine Screen NEGATIVE (NEGATIVE) U Methamphetamines Scrn NEGATIVE (NEGATIVE) U Benzodiazepines Scrn NEGATIVE (NEGATIVE) Urine Cocaine Screen NEGATIVE (NEGATIVE) U Cannabinoids Screen NEGATIVE (NEGATIVE) Ur Drug Screen Comment CUTOFF CONC BELOW: Ethyl Alcohol < 10.0 mg/dL Diagnostic Imaging Diagnostic Imaging Results: positive Final report reviewed Assessment/Plan Problem List (1) Valproic acid toxicity: Impression: Patient drank 2 bottles of liquid valproic acid that were prescribed to him in the past. When asked why he takes these, he said that it was for bipolar disorder. However, he does state that he may have a seizure history in the past. He is not compliant with this and does not take them daily. He thinks he drank 1 bottle, and then another quarter of a bottle. He is able to tell me that thery were 473 mL bottles and that it is a 250 mg per 5 mL solution. That means he's ingested about 29 g of valproic acid. Emergency room spoke with Poison Control; they reccomend close monitoring for mental status changes. They also reccomend checking valproic acid levels every 4 hours until they are downtrending. I spoke with them again this morning - with his levels downtrending, normal electrolytes, no neurological deficits, he is effectively cleared. Will change from ICU to Med/Surg status. Medically cleared. Awaiting psychiatric placement. Qualifiers: Encounter type: initial encounter Injury intent: undetermined intent Q ualified Code(s): T42.6X4A - Poisoning by other antiepileptic and sedative- hypnotic drugs, undetermined, initial encounter (2) Alcohol abuse: Impression: Overnight, CIWA scores ranged from 12-15. He required 2 mg of Ativan overnight. This morning, CIWA was 1. Continue to monitor. Will switch Banana bag IV supplementation to oral supplementation with the vitamin and folic acid. (3) Bipolar 1 disorder: Impression: Not currently on any medications for this. Is having active suicidal ideations. Social work working on psychiatric placement. (4) Hypernatremia: Impression: Resolved. (5) Opioid abuse: Impression: Will verify Suboxone dose before restarting.
[2024-09-12] MEDS: THIAMINE 100 MG TABLET PO SCH (12:29)
[2024-09-12] MEDS: PRENATAL VITAMIN TABLET PO SCH (12:29)
--- NOTE | 2024-09-12 14:46 | Discharge Summary ---
"Discharge Summary Admit Date: 09/11/24 Discharge Date: 09/13/24 Discharging Provider: Brooklynn Browne MD Primary Care Provider: Unknown Code Status: Attempt Resuscitation DIAGNOSES Admission Diagnoses: Valproic acid toxicity Hypernatremia Opiate abuse Alcohol abuse Bipolar 1 disorder Discharge Diagnoses with Status of Each Condition: Valproic acid toxicitypatient drank 2 bottles of liquid valproic acid, ingested about 29 g of valproic acid. Spoke with poison control, we trended his electrolytes, as well as his levels. He is medically cleared from the standpoint. Alcohol useovernight CIWA scores ranged from 12-15, they are 1 this morning. He is only required 2 mg of Ativan overnight. Continue supplementation with multivitamin, folic acid, thiamine. Bipolar disorderpatient with active suicidal ideation at this time. Plan for inpatient psychiatric treatment. Hypernatremiaresolved. Opioid usewill verify Suboxone dosing before restarting. HPI History of Present Illness: Patient is a 24-year-old male with a history of bipolar disorder, OCD, autism who presents for valproic acid overdose. Patient does not recall much of the events of yesterday. He states that he had a beer with his grandpa, and then went up to his room, and took trazodone and hydroxyzine. He states that he does not have a prescription for either, but was given to them by a family member to help him sleep. He had 2 bottles of liquid valproic acid that were prescribed to him in the past. When asked why he takes these, he said that it was for bipolar disorder. However, he does state that he may have a seizure history in the past. He is not compliant with this and does not take them daily. He thinks he drank 1 bottle, and then another quarter of a bottle. He is able to tell me that they are 473 mL bottles and that it is a 250 mg per 5 mL solution. He does not know what his doses. When asked if he took these bottles to hurt himself, he states that he is unsure. He does endorse that he has been feeling pretty depressed and down. Looking at previous ER notes, in 10/03, patient was actively suicidal, and was transferred to acute psychiatric facility. Past medical history: Opioid use, alcohol use, autism, bipolar disorder, suicidal ideation Medications: Patient states he is not prescribed any at this time Allergies: No known drug allergies Surgical history: None Social history: States he drinks 3 to 6 pack of beer every day. Has had an episode of alcohol withdrawals. Denies any other recreational drug use including marijuana, cocaine, heroin. [place] his grandfather with his business. CONSULTS | PROCEDURES Consultations: Social work Procedures: Chest x-ray HOSPITAL COURSE Hospital Course: Patient is a 24-year-old male with a history of bipolar disorder, OCD, autism who presented for valproic acid overdose. He does have active suicidal ideation, but he does not remember with that this was a suicide attempt. He drinks 1.25 bottles of his valproic acid, effectively 29 g dose. He was anxious and jittery when he first got here. Poison control was spoken with, they recommended serial electrolytes, valproic acid levels until downtrending. Electrolytes have been normal, and his valproic acid level has down trended down to normal. He is effectively medically cleared from the standpoint. He does have a history of alcohol use, and he was placed on CIWA protocol overnight, initially ranging from 12-15. On the second morning of admit, his CIWA score was 1. He is only required a couple doses of Ativan. Due to his active suicidal ideation, he will likely need inpatient psychiatric treatment. Social work is working on finding him placement. Placement was found on September 12. The facility asked us to do a COVID test and then he could go. There was miscommunication and patient was not able to be discharged on September 12. As such he was discharged on September 13. ALLERGIES Allergies Allergy/AdvReac Type Severity Reaction Status Date / Time No Known Drug Allergies Allergy Verified 09/11/24 12:07 MEDICATIONS Ambulatory Orders Medication Instructions Recorded Confirmed buprenorphine 8 mg-naloxone 2 mg 2 film PO DAILY 08/13/23 09/11/24 sublingual film (Suboxone) vit,calcium 27-ferrous 1 tab PO DAILYWM #30 tabs 09/12/24 fum 60 mg iron-folic acid 1 mg tablet (Trinatal Rx 1) thiamine mononitrate (vit B1) 100 100 mg PO DAILY 30 days #30 tabs 09/12/24 mg tablet PHYSICAL EXAM AT DISCHARGE General Appearance: positive No acute distress, Alert and Anxious Eyes Bilateral: positive Normal inspection, PERRL and EOMI ENT: positive ENT inspection nml, Pharynx nml and No signs of dehydration Neck: positive Nml inspection, Thyroid nml and No JVD Respiratory: positive Chest non-tender, No respiratory distress and Breath sounds nml; negative Wheezes, Rales or Rhonchi Cardiovascular: positive Regular rate & rhythm, No murmur and No gallop Peripheral Pulses: positive 2+ Abdomen: positive Non-tender, No organomegaly, Nml bowel sounds and No distention; negative Tenderness, Guarding, Rebound or Hepatomegaly Back: positive Nml inspection; negative CVA tenderness (R) or CVA tenderness (L) Skin: positive Color nml, No rash, Warm and Dry Extremities: positive Non-tender, Full ROM, Nml appearance and No pedal edema Neurologic/Psychiatric: positive Oriented x3, Depressed mood/affect and Other LABS 09/13/24 04:33 09/13/24 04:33 DIAGNOSTIC IMAGING Diagnostic Imaging Results: Final report reviewed QUALITY (Female Hip Fx Only) Was patient sent home on osteoporosis medication?: No FOLLOW UP Follow Up: Follow-up with inpatient psychiatry. TIME SPENT Time Spent in Discharge (Minutes): 35 Discharge Plan Discharge Patient Disposition: 65 Psych Hosp/Unit DC/Xfer Condition: Stable Medically Cleared Date:: 09/11/24 Medically Cleared Comments:: waiting for a bed, then pt not dc'd due to VIDEO GAME DES[employer]ER error 09/12 Prescriptions: New Trinatal Rx 1 60 mg iron-1 mg Tablet 1 tab PO DAILYWM Qty: 30 0RF thiamine mononitrate (vit B1) 100 mg Tablet 100 mg PO DAILY 30 Days Qty: 30 0RF Held buprenorphine-naloxone [Suboxone] 1 EACH film 2 film PO DAILY Hold Instructions: Resume on 09/19/24. Hold until appropriate to restart (i.e. no longer lethargic or altered from valproic acid). Discontinued trazodone 50 MG tablet 100 mg PO HS PRN (Reason: Insomnia) hydroxyzine pamoate 50 MG capsule 50 mg PO QPM PRN (Reason: sleep) gabapentin 600 mg tablet 600 mg PO BID Activity Restrictions: Activity as Tolerated Diet: Regular Health Concerns: You have a history of bipolar disorder, and may have a seizure disorder. You have valproic acid at home for either 1 of these 2 disorders. You were not feeling well and you were very depressed and you drank 2 bottles of your liquid valproic acid. You came to the emergency room with already ingested toxicity. We monitored carefully and your levels gradually went down until you are able to be discharged by September 11. However you could not go home because you need to be evaluated for your suicidal gesture. We have finally found a hospital that would be willing to treat you for this. You are now to be transition to that hospital. You also have a history of alcohol abuse; we monitored you for alcohol withdrawal. You received IV folate, and IV thiamine for the alcohol withdrawal. You also received 1 dose of a benzodiazepine. While you are here you were treated with Suboxone for your opioid abuse. Print Language: Sami"
[2024-09-12 21:15] VITALS: TEMP 98.8
[2024-09-13 01:07] VITALS: BP 138/91
[2024-09-13] MEDS: NICOTINE 7 MG PATCH TOP SCH (02:08)
[2024-09-13 04:48] LABS: HCT - HEMATOCRIT 39.2 % (42.0-52.0); HGB - HEMOGLOBIN 13.1 g/dL (14.0-18.0); MEAN CORPUSCULAR HEMOGLOBIN 29.5 pg (27.0-31.0); MEAN CORPUSCULAR HGB CONC 33.4 g/dL (32.0-36.0); MEAN CORPUSCULAR VOLUME 88.3 fL (80.0-94.0); MEAN PLATELET VOLUME 10.5 fL (7.4-11.4); RED BLOOD COUNT 4.44 10^6/uL (4.70-6.10); RED CELL DISTRIBUTION WIDTH 11.9 % (12.0-15.0)
[2024-09-13 05:35] LABS: CALCIUM 8.7 mg/dL (8.5-10.3); CREATININE 0.7 mg/dL (0.6-1.3); POTASSIUM 3.7 mmol/L (3.5-4.5)
[2024-09-13] MEDS: PANTOPRAZOLE 40 MG TABLET PO SCH (06:46)
[2024-09-13 08:59] VITALS: O2SAT 97
== END 2024-09-13 10:27 | DRG 918 ==
LOC: ED 11:56 → ICU 14:30
PROVIDERS: ADMIT Internal Medicine; ATTEND Internal Medicine
DX: F11.10 Opioid abuse, uncomplicated; F31.9 Bipolar disorder, unspecified; F41.9 Anxiety disorder, unspecified; R41.82 Altered mental status, unspecified; E87.5 Hyperkalemia; F84.0 Autistic disorder; F10.139 Alcohol abuse with withdrawal, unspecified; T42.6X2A Poisoning by other antiepileptic and sedative-hypnotic drugs, intentional self-harm, initial encounter; Y92.003 Bedroom of unspecified non-institutional (private) residence as the place of occurrence of the external cause; F42.9 Obsessive-compulsive disorder, unspecified; R45.851 Suicidal ideations